=== PATIENT | female | born 1990 | race Asian ===

== ENCOUNTER 2017-11-25 08:10 | Inpatient (IN) | payer MEDICAID ==
[2017-11-25 08:58] LABS: ADD MAN DIFF? NO
[2017-11-25 09:02] LABS: WHITE BLOOD COUNT 11.6 10^3/ul (4.8-10.8)
[2017-11-25 09:02] LABS: ABNORMAL IP MESSAGE 1; BASOPHIL # 0.1 10^3/ul (0.0-0.1); BASOPHILS % 0.6 % (0.0-2.0); EOSINOPHILS # 0.7 10^3/ul (0.0-0.5); EOSINOPHILS % 5.9 % (0.0-7.0); HEMATOCRIT 22.2 % (37.0-47.0); LYMPHOCYTES # 2.3 10^3/ul (0.8-2.9); LYMPHOCYTES % 20.1 % (15.0-51.0); MEAN CORPUSCULAR HEMOGLOBIN 13.8 pg (29.0-33.0); MEAN CORPUSCULAR HGB CONC 23.4 g/dl (32.0-37.0); MEAN PLATELET VOLUME 8.9 fl (7.4-10.4); MONOCYTE # 0.9 10^3/ul (0.3-0.9); MONOCYTES % 7.6 % (0.0-11.0); NEUTROPHIL # 7.6 10^3/ul (1.6-7.5); NEUTROPHILS % 65.5 % (39.0-77.0); NUCLEATED RED BLOOD CELLS% 0.2 /100WBC (0.0-0.0); PLATELET COUNT 533 10^3/UL (140-415); RED BLOOD COUNT 3.76 10^6/ul (4.20-5.40); RED CELL DISTRIBUTION WIDTH 22.2 % (11.5-14.5)
[2017-11-25 09:10] LABS: POSITIVE DIFF @See below
[2017-11-25 09:12] LABS: HEMOGLOBIN 5.2 g/dl (12.0-16.0); PATH REVIEW? YES
[2017-11-25] MEDS: SOD CHLORIDE 0.9% 1,000 ML IV ×4 (09:19→21:26)
[2017-11-25] MEDS: morphine 4 MG/ML VIAL IV (09:20)
[2017-11-25] MEDS: KETOROLAC 30 MG INJ IV (09:20)
[2017-11-25] MEDS: ONDANSETRON 4 MG INJ IV (09:20)
[2017-11-25 09:22] LABS: ALANINE AMINOTRANSFERASE 15 IU/L (13-69); ALBUMIN 4.4 g/dl (3.3-4.9); ALKALINE PHOSPHATASE 54 IU/L (42-121); ANION GAP 15 (8-16); ASPARTATE AMINO TRANSFERASE 31 IU/L (15-46); BILIRUBIN,INDIRECT 0.6 mg/dl (0-1.1); BILIRUBIN,TOTAL 0.6 mg/dl (0.2-1.3); BLOOD UREA NITROGEN 11 mg/dl (7-20); CALCIUM 8.9 mg/dl (8.4-10.2); CARBON DIOXIDE 23 mmol/L (21-31); CHLORIDE 107 mmol/L (97-110); CREATININE 0.52 mg/dl (0.44-1.00); GLUCOSE 102 mg/dl (70-220); LIPASE 90 U/L (23-300); POTASSIUM 4.1 mmol/L (3.5-5.1); SODIUM 141 mmol/L (135-144); TOTAL PROTEIN 8.7 g/dl (6.1-8.1)
[2017-11-25 09:23] LABS: ALBUMIN/GLOBULIN RATIO 1.02
[2017-11-25 09:27] LABS: ADD UMIC YES; UR ASCORBIC ACID NEGATIVE (NEGATIVE); UR BACTERIA FEW /HPF (NONE SEEN); UR BILIRUBIN (Dip) NEGATIVE (NEGATIVE); UR BLOOD (Dip) 3+ mg/dL (NEGATIVE); UR CLARITY CLOUDY (CLEAR); UR COLOR YELLOW (YELLOW); UR GLUCOSE (Dip) NEGATIVE (NEGATIVE); UR KETONES (Dip) NEGATIVE (NEGATIVE); UR LEUKOCYTE ESTERASE (Dip) 2+ Leu/ul (NEGATIVE); UR MUCUS MODERATE /HPF (NONE SEEN); UR NITRITE (Dip) NEGATIVE (NEGATIVE); UR RBC 14 /HPF (0-5); UR SPECIFIC GRAVITY (Dip) 1.023 (1.003-1.030); UR SQUAMOUS EPITHELIAL CELL MANY /HPF (FEW); UR TOTAL PROTEIN (Dip) 1+ mg/dl (NEGATIVE); UR UROBILINOGEN (Dip) NEGATIVE (NEGATIVE); UR WBC 92 /HPF (0-5)
[2017-11-25] MEDS: SOD CHLORIDE 0.9% 100 ML (09:28)
[2017-11-25] MEDS: IOHEXOL 300MG/ML 150 ML BTL (09:29)
[2017-11-25] MEDS ORDERED: BARIUM SULF 2% 450 ML BTL (BERRY SMOOTHIE) PO (09:47)
[2017-11-25] MEDS: BARIUM SULF 2% 450 ML BTL (BERRY SMOOTHIE) PO (09:51)
[2017-11-25] MEDS: IOHEXOL 14.3 MG(I)/ML (ADULT) BTL PO (09:51)
[2017-11-25 09:52] LABS: ANISOCYTOSIS 2+ (0-0); BAND NEUTROPHILS #M 0.2 10^3/ul (0.0-0.6); BAND NEUTROPHILS % (M) 2 % (0-4); BASOPHIL #M 0.2 10^3/ul (0.0-0.0); BASOPHILS % (M) 2 % (0-2); EOSINOPHILS % (M) 5 % (0-7); GIANT THROMBO% (M) 1 % (0-0); HYPOCHROMASIA 1+ (0-0); LYMPHOCYTES #M 2.9 10^3/ul (0.8-2.9); LYMPHOCYTES % (M) 25 % (15-51); MICROCYTOSIS 1+ (0-0); MONOCYTE #M 1.1 10^3/ul (0.3-0.9); MONOCYTES % (M) 10 % (0-11); PLATELET ESTIMATE INCREASED; PLATELET MORPHOLOGY COMMENT @See below; POIKILOCYTOSIS 3+ (0-0); POLYCHROMASIA 3+ (0-0); REACTIVE LYMPHOCYTES #M 0.1 10^3/ul (0.0-0.0); REACTIVE LYMPHOCYTES% (M) 1 % (0-0); SEG NEUT #M 6.4 10^3/ul (1.6-7.5); SEGMENTED NEUTROPHILS (M) % 55 % (39-77); SMUDGE%M 1 % (0-0)
[2017-11-25] MEDS ORDERED: NACL 0.9% 3 ML SYG IV (12:30)
[2017-11-25] MEDS ORDERED: ACETAMINOPHEN 325 MG TAB PO ×2 (12:30→13:00)
[2017-11-25] MEDS ORDERED: ONDANSETRON 4 MG INJ IV ×2 (12:30→13:00)
[2017-11-25] MEDS: CEFTRIAXONE 1 GM/50 ML (PMX) 50 ML IVPB (12:57)
[2017-11-25 15:08] LABS: FERRITIN 2.7 ng/ml (6.2-137.0)
[2017-11-25 16:25] LABS: IMMEDIATE SPIN CROSSMATCH 1 4
[2017-11-25] MEDS ORDERED: FAMOTIDINE 20 MG TAB (19:28)
[2017-11-25] MEDS: FAMOTIDINE 20 MG TAB PO (21:26)
[2017-11-25 22:50] LABS: HEMATOCRIT 24.1 % (37.0-47.0)
[2017-11-25] MEDS: SOD FERRIC GLUC COMPLX 125 MG in SOD CHLORIDE 0.9% 100 ML IVPB (22:52)
[2017-11-25 22:57] LABS: HEMOGLOBIN 6.4 g/dl (12.0-16.0)
[2017-11-25 23:05] LABS: IRON 26 ug/dl (35-150)
[2017-11-25 23:14] LABS: % IRON SATURATION 5 % SAT (22-52); TOTAL IRON BINDING CAPACITY 476 ug/dl (241-421)
[2017-11-26 08:16] LABS: ADD MAN DIFF? NO
[2017-11-26] MEDS: SOD CHLORIDE 0.9% 1,000 ML IV ×2 (08:16→11:58)
[2017-11-26] MEDS: FAMOTIDINE 20 MG TAB PO (08:16)
[2017-11-26 08:19] LABS: ABNORMAL IP MESSAGE 1; BASOPHIL # 0.1 10^3/ul (0.0-0.1); BASOPHILS % 1.2 % (0.0-2.0); EOSINOPHILS # 0.6 10^3/ul (0.0-0.5); EOSINOPHILS % 6.4 % (0.0-7.0); HEMATOCRIT 30.7 % (37.0-47.0); HEMOGLOBIN 8.6 g/dl (12.0-16.0); LYMPHOCYTES # 1.5 10^3/ul (0.8-2.9); LYMPHOCYTES % 15.8 % (15.0-51.0); MEAN CORPUSCULAR HEMOGLOBIN 19.5 pg (29.0-33.0); MEAN CORPUSCULAR VOLUME 69.6 fl (82.0-101.0); MEAN PLATELET VOLUME 9.1 fl (7.4-10.4); MONOCYTE # 0.8 10^3/ul (0.3-0.9); MONOCYTES % 8.2 % (0.0-11.0); NEUTROPHIL # 6.2 10^3/ul (1.6-7.5); NEUTROPHILS % 67.4 % (39.0-77.0); NUCLEATED RED BLOOD CELLS% 0.3 /100WBC (0.0-0.0); PLATELET COUNT 402 10^3/UL (140-415); RED BLOOD COUNT 4.41 10^6/ul (4.20-5.40); RED CELL DISTRIBUTION WIDTH 30.1 % (11.5-14.5)
[2017-11-26 08:19] LABS: WHITE BLOOD COUNT 9.2 10^3/ul (4.8-10.8)
[2017-11-26 08:20] LABS: POSITIVE DIFF @See below
[2017-11-26 08:40] LABS: ALANINE AMINOTRANSFERASE 53 IU/L (13-69); ALBUMIN 3.5 g/dl (3.3-4.9); ALBUMIN/GLOBULIN RATIO 0.87; ALKALINE PHOSPHATASE 94 IU/L (42-121); ANION GAP 13 (8-16); ASPARTATE AMINO TRANSFERASE 51 IU/L (15-46); BILIRUBIN,INDIRECT 0.9 mg/dl (0-1.1); BILIRUBIN,TOTAL 0.9 mg/dl (0.2-1.3); BLOOD UREA NITROGEN 7 mg/dl (7-20); CALCIUM 8.7 mg/dl (8.4-10.2); CARBON DIOXIDE 24 mmol/L (21-31); CHLORIDE 107 mmol/L (97-110); CREATININE 0.53 mg/dl (0.44-1.00); GLUCOSE 85 mg/dl (70-220); MAGNESIUM 1.8 mg/dl (1.7-2.5); POTASSIUM 4.6 mmol/L (3.5-5.1); SODIUM 139 mmol/L (135-144); TOTAL PROTEIN 7.5 g/dl (6.1-8.1)
[2017-11-26] MEDS: CEFTRIAXONE 1 GM/50 ML (PMX) 50 ML IVPB (11:18)
[2017-11-26] MEDS: FOSFOMYCIN 3 GM PACKET PO (12:01)
[2017-11-26] MEDS: SOD FERRIC GLUC COMPLX 125 MG in SOD CHLORIDE 0.9% 100 ML IVPB ×2 (12:01→17:13)
[2017-11-26 18:09] LABS: HEMATOCRIT 30.3 % (37.0-47.0); HEMOGLOBIN 8.5 g/dl (12.0-16.0)
== END 2017-11-26 18:40 | disposition home or self-care (01) | DRG 812 ==
LOC: FTE 08:10 → PP2 12:38
PROVIDERS: Family Medicine
PROC: 30233N1 Transfusion of Nonautologous Red Blood Cells into Peripheral Vein, Percutaneous Approach (ICD-10-PCS; principal; 2017-11-25)
DX: D62 Acute posthemorrhagic anemia (principal); N39.0 Urinary tract infection, site not specified; D25.9 Leiomyoma of uterus, unspecified; N92.0 Excessive and frequent menstruation with regular cycle; D50.9 Iron deficiency anemia, unspecified; N94.6 Dysmenorrhea, unspecified; N93.8 Other specified abnormal uterine and vaginal bleeding
CPT/HCPCS: 36415; 36430; 74176; 76830; 76856; 80053; 81001; 81025; 82728; 83540; 83690; 83735; 84100; 84703; 85014; 85018; 85025; 86850; 86900; 86901; 86920; 87040; 87086; 96361; 96374; 96375; 99291-25; G0378